=== PATIENT | female | born 1990 | race Caucasian/White ===

== ENCOUNTER → 2022-05-21 16:00 | Outpatient (CLI) | payer OTHER, SELFPAY ==
--- NOTE | 2022-05-21 16:03 | DI.ECHO.S_ITS ---
[facility] +---------+ : : [address] : : : : [id number] : : : : Phone: [phone]---------+ Echocardiogram Report + + :Name: JUD ANGELA Study Date: 05/21/2022 Height: 67 in : :[facility] ReadingLocation: Weight: 260 lb : : Gender: Female BSA: 2.3 m2 : :: 1990 Age: 31 yrs BP: 144/98 mmHg: :Reason For Study: Hypertension : :Ordering Physician: Lauren, : :Kaitlyn Chan Performed By: Priscilla Llanes : :Referring: Kaitlyn Aguilar : + + Interpretation Summary The left ventricle is normal in size and wall thickness. Left ventricular systolic function appears normal without focal wall motion abnormalities. The ejection fraction is estimated to be 65-70%. Diastolic parameters suggest probable normal left ventricular diastolic function and normal filling pressures. The right ventricle is normal in size and function. Pulmonary artery pressures cannot be estimated because of the lack of a measurable TR jet velocity. The left atrial size is normal. Right atrial size is normal. There is no significant valvular heart disease. The aortic root is normal size. Procedure: A two-dimensional transthoracic echocardiogram with color flow and Doppler was performed. The study quality was technically good. The patient was in sinus tachycardia with heart rates between 97-110 bpm during the exam. Left Ventricle: The left ventricle is normal in size and wall thickness. Left ventricular systolic function appears normal without focal wall motion abnormalities. The ejection fraction is estimated to be 65-70%. Diastolic parameters suggest probable normal left ventricular diastolic function and normal filling pressures. Right Ventricle: The right ventricle is normal in size and function. Atria: The left atrial size is normal. Right atrial size is normal. There is no Doppler evidence for an interatrial shunt. Mitral Valve: The mitral valve is normal in structure and function. The mitral valve leaflets appear mildly thickened, but open well. There is trace mitral regurgitation. Aortic Valve: The aortic valve is normal in structure and function. No aortic regurgitation is present. Tricuspid Valve: The tricuspid valve is normal in structure and function. No tricuspid regurgitation. Pulmonary artery pressures cannot be estimated because of the lack of a measurable TR jet velocity. Pulmonic Valve: The pulmonic valve leaflets are thin and pliable; valve motion is normal. There is a trace or physiologic amount of pulmonic regurgitation. There is no other significant valvular heart disease. Great Vessels: The aortic root is normal size. The ascending aorta is normal in size. The IVC is dilated (diameter is greater than 2.1 cm) yet it collapses greater than 50% with a sniff. This suggests a right atrial pressure of 8 mm Hg. Pericardium/ Pleura There is no pericardial effusion. There is no pleural effusion. MMode/2D Measurements & Calculations LVIDd: 4.8 cm LVOT diam: 2.0 cm LVIDs: 3.0 cm Ao root diam: 2.9 cm FS: 37.5 % asc Aorta Diam: 3.0 cm EPSS: 0.30 cm IVSd: 0.70 cm LVPWd: 0.80 cm LV mari. diameter/BSA (cm/m^2): 2.1 LV sys. diameter/BSA (cm/m^2): 1.3 LA dimension: 3.5 cm RA long axis: 4.3 cm LA A2 area: 16.9 cm2 RA area: 11.0 cm2 LA A4 area: 15.7 cm2 RA vol: 24.1 ml LA length (vol): 4.9 cm RA : 10.7 ml/m2 LA vol: 46.4 ml IVC diam: 2.3 cm LA vol index: 20.5 ml/m2 RVD1 (basal): 3.4 cm LVLs ap4: 6.5 cm LVLd ap2: 7.9 cm TAPSE_phl: 2.1 cm Doppler Measurements & Calculations Ao V2 max: 137.0 cm/sec LVOT Max Dick: 99.2 cm/sec Ao V2 mean: 98.8 cm/sec LV V1 max P.9 mmHg Ao max P.0 mmHg LV V1 VTI: 20.1 cm Ao mean P.0 mmHg CHIARA(I,D): 2.4 cm2 Ao V2 VTI: 26.4 cm CHIARA(V,D): 2.3 cm2 sev ratio: 0.76 CHIARA indexed to BSA (cm^2/m^2): 1.1 MV E max dick: 83.3 cm/sec PA V2 max: 102.0 cm/sec MV A max dick: 62.9 cm/sec PA V2 mean: 64.2 cm/sec MV E/A: 1.3 PA mean P.0 mmHg Med Peak E' Dick: 12.2 cm/sec E/E' med: 6.8 Lat Peak E' Dick: 18.9 cm/sec E/E' lat: 4.4 E/e' average: 5.6 MV dec time: 0.12 sec MVA(VTI): 3.9 cm2 MV V2 mean: 59.5 cm/sec SV(LVOT): 63.1 ml MV mean P.0 mmHg MV V2 VTI: 16.1 cm AV VR_phl: 0.72 MV P1/2t-pr_phl: 35.0 msec CHIARA(VTI)/BSA_phl: 1.1 Reading Physician:07:19 PM
== END ==
PROVIDERS: PCP Family Medicine; Referring Provider Family Medicine; Visit Provider Family Medicine
DX: I10 Essential (primary) hypertension (principal)
CPT/HCPCS: 93306